=== PATIENT | female | born 1975 | race Caucasian/White ===

== ENCOUNTER 2020-11-22 18:12 | Emergency (ER) | payer BC, SELFPAY ==
[2020-11-22 18:28] VITALS: BP 136/96; PULSE 91; RESP 16; TEMP 36.4; O2SAT 100
--- NOTE | 2020-11-22 18:34 | ED.WOUNDLAC ---
HPI - Wound/Laceration General Chief Complaint: Wound/Laceration Stated Complaint: Laceration on finger Time Seen by Provider: 11/22/20 18:34 Source: patient Mode of arrival: ambulatory Limitations: no limitations History of Present Illness HPI narrative: Callie Francis is a 45 yo female with a PMH of hypothyroidism, who dropped a plate and scratched fingers 1 hour POA 3 small lacerations to 5th finger and 2 to lateral side fourth finger. Controlled bleeding. Needs tetanus vaccine Related Data Home Medications Medication Instructions Recorded Confirmed levothyroxine 88 mcg PO DAILY 11/22/20 11/22/20 noreth-ethinyl estradiol-iron 1 tablet PO DAILY 11/22/20 11/22/20 [[place]] Allergies Allergy/AdvReac Type Severity Reaction Status Date / Time NKDA Allergy Unknown Uncoded 01/20/03 14:32 NKFA Allergy Unknown Uncoded 01/20/03 14:32 NO KNOWN DRUG ALLERGIES Allergy Y Uncoded 01/20/03 15:20 (Class Allergy) Review of Systems Review of Systems: Narrative: CONSTITUTIONAL: Denies fever, chills, sweats. EYES: Denies visual changes, redness, discharge. ENT: Denies rhinorrhea, congestion, sore throat, otalgia. CARDIOVASCULAR: Denies chest pain, palpitations, edema. RESPIRATORY: Denies dyspnea, wheezing, cough GASTROINTESTINAL: Denies abdominal pain, nausea, vomiting, diarrhea. GENITOURINARY: Denies dysuria, hematuria, abnormal discharge SKIN: Denies rash or itching. NEUROLOGIC: Denies numbness, or focal weakness. PSYCHIATRIC: Denies anxiety or depression. 3 small lacerations to the fifth finger and fourth finger of left hand PMFSH Past Medical History Medical History Hypothyroid Family History Family History Other No acute medical problems Social History Social History (Updated 11/22/20 @ 19:05 by Isidra Acuña CNP) Smoking status: Never smoker Alcohol intake: never Comments At time of signature, I agree with nursing past medical, surgical, social and family history. There is no relevant family history pertinent to the presenting complaint. Blood pressure is elevated at visit may be due to situation; patient should follow up with primary care physician Exam Narrative: Exam Narrative: GENERAL: This is a well-nourished, well-developed patient, in mild distress. HEAD: normocephalic, atraumatic. EYES: PERRL. Sclera clear/white. Vision is grossly intact. EARS: External ears normal, auditory canals clear and without drainage, TMs normal without perforation. Hearing grossly intact. NOSE: External nose normal without nasal discharge, nares without redness, no rhinorrhea. THROAT: Mucous membranes moist, posterior pharynx NECK: Neck supple, non-tender CARDIOVASCULAR: Regular rate and rhythm without murmurs, gallops, or rubs. RESPIRATORY: Clear to auscultation. Breath sounds equal bilaterally. No wheezes, rales, or rhonchi. GASTROINTESTINAL: Abdomen soft, non-tender, SKIN: warm, intact with no suspicious lesions or rash, good texture and turgor. NEURO: awake, alert, and oriented to person, place and time. There were no obvious focal neurologic abnormalities. Steady gait EXTREMITIES: Normal range of motion. 3 small lacerations to the left hand 1 on fourth (1 cm)and 2 to fifth finger( .25 flap) BACK: Nontender without deformity Course Course Emergency Course: Patient dropped a plate from microwave and cut right fourth and fifth finger superficial cuts to these fingers bleeding controlled Vital Signs Vital signs: Vital Signs Temperature 97.6 F 11/22/20 18:28 Pulse Rate 91 11/22/20 18:28 Respiratory Rate 16 11/22/20 18:28 Blood Pressure 136/96 H 11/22/20 18:28 Pulse Oximetry 100 11/22/20 18:28 Temperature 97.6 F 11/22/20 18:28 Pulse Rate 91 11/22/20 18:28 Respiratory Rate 16 11/22/20 18:28 Blood Pressure 136/96 H 11/22/20 18:28 Pulse Oximetry 100 11/22/20 18:2
[2020-11-22] MEDS: TETANUS,DIPHTHERIA,AC PERTUSSIS ADULT (0.5 ML) BOOSTRIX IM (19:18)
== END 2020-11-22 19:43 | disposition home or self-care (01) ==
PROVIDERS: Emergency Provider Nurse Practitioner; PCP Family Medicine
DX: S61.215A Laceration without foreign body of left ring finger without damage to nail, initial encounter (principal); S61.217A Laceration without foreign body of left little finger without damage to nail, initial encounter; W45.8XXA Other foreign body or object entering through skin, initial encounter; Z23 Encounter for immunization; E03.9 Hypothyroidism, unspecified
CPT/HCPCS: 12001; 90471; 90715; 99202; G0463